=== PATIENT | female | born 1980 | race Caucasian/White ===

== ENCOUNTER → 2020-01-27 13:37 | Outpatient (BNVA) | payer OTHER, SELFPAY | PROVIDERS: Family Provider Family Medicine; PCP Family Medicine; Visit Provider Otolaryngology | DX: R13.10 Dysphagia, unspecified (principal); J30.89 Other allergic rhinitis; J34.2 Deviated nasal septum | CPT/HCPCS: 96372; 99204; 99214; J3301 ==

== ENCOUNTER 2020-02-09 04:26 | Emergency (ER) | payer OTHER, SELFPAY ==
[2020-02-09 04:27] VITALS: BP 133/88; PULSE 70; RESP 16; TEMP 36.9; O2SAT 99; BMI 40.9
--- NOTE | 2020-02-09 04:29 | PC.NURSE ---
patient started vomiting blood today. patient states she started having abdominal pain monday. patient states she was seen at another facility but was not satisfied with her care there. patient states she is having pain on the lower right side of her abdomen
--- NOTE | 2020-02-09 04:48 | CTR_ITS ---
PROCEDURE INFORMATION: Exam: CT Abdomen And Pelvis With Contrast Exam date and time: 02/09/2020 4:49 AM Age: 39 years old Clinical indication: Abdominal pain; Localized; Right; Prior surgery; Surgery date: 6+ months; Surgery type: Gb; Additional info: R belly pain TECHNIQUE: Imaging protocol: Computed tomography of the abdomen and pelvis with intravenous contrast. Total DLP: 1872.44 mGy-cm Radiation optimization: All CT scans at this facility use at least one of these dose optimization techniques: automated exposure control; mA and/or kV adjustment per patient size (includes targeted exams where dose is matched to clinical indication); or iterative reconstruction. Contrast material: OMNI 300; Contrast volume: 95 ml; Contrast route: IV; COMPARISON: CT Abdomen/Pelvis Renal [id number] 06/17/2019 10:05 AM FINDINGS: Lungs: Calcified pulmonary granulomatous change noted. Liver: Fatty liver. Gallbladder and bile ducts: Cholecystectomy. Pancreas: Normal. No ductal dilation. Spleen: Normal. No splenomegaly. Adrenals: Normal. No mass. Kidneys and ureters: Normal. No hydronephrosis. Stomach and bowel: Unremarkable. No obstruction. No mucosal thickening. Appendix: No evidence of appendicitis. Intraperitoneal space: Unremarkable. No free air. No significant fluid collection. Vasculature: Unremarkable. No abdominal aortic aneurysm. Lymph nodes: Unremarkable. No enlarged lymph nodes. Bladder: Unremarkable as visualized. Reproductive: Unremarkable as visualized. Bones/joints: No acute fracture. Soft tissues: Calcifications are seen in subcutaneous fat that can relate to injection sites. CT/CT abdomen pelvis w con* [id number] IMPRESSION: No acute findings. Radiation Dose CTDIVOL = (mGy): DLP = 1872.44 (mGy-cm)
--- NOTE | 2020-02-09 04:52 | PC.NURSE ---
PATIENT STATES SHE STARTED HAVING ABDOMINAL PAIN ON MONDAY AND LAST NIGHT STARTED VOMITING BLOOD. PATIENT STATES SHE HAS VOMITED BLOOD TWICE. PATIENT STATES THE PAIN IS LOCATED ON THE RIGHT SIDE OF HER ABDOMEN AND INTO THE RIGHT FLANK.
[2020-02-09 04:54] VITALS: BP 113/78; PULSE 67; RESP 16; O2SAT 98
--- NOTE | 2020-02-09 05:01 | W.ED.ABDPA2 ---
Documented by User: Compa Lr DO 02/09/20 05:53 HPI - Abdominal Pain General: Chief Complaint: Abdominal Pain Stated Complaint: ABD PAIN Time Seen by Provider: 02/09/20 04:28 History of Present Illness: HPI narrative: 39-year-old female presenting with epigastric and right lower quadrant belly pain that started Monday morning. She states the pain worsened this morning, and was followed by vomiting. She is vomited twice, the first time a small clot was in her emesis, the second time she says the liquid was bloody. There were no clots. No further vomiting. No fever. MD elicited complaint: abdominal pain Pertinent past history: gastrointestinal bleeding Onset (ago): day(s) (2) Pain Consistency: constant Location: Epigastric and RLQ Severity: moderate Quality: sharp Migration to: no migration Exacerbating factors: movement Relieving factors: nothing Associated Symptoms: Denies change in bowel habits, chills, coffee ground emesis, diarrhea, dysuria, fever(s) and hematuria Related Data: Date of Last Menstrual Period: 01/21/20 Review of Systems Const: Denies: fever or chills Eyes: Denies: change in vision or blurry vision ENMT: Reports: painful swallowing and other (Difficulty swallowing, such that she has been on a soft diet.); Denies: swelling of lips/tongue, bleeding gums, dental pain, Change in hearing, nose bleeds, post nasal drip or facial/sinus pain Card: Denies: chest pain, palpitations, irregular heart rhythm or edema Resp: Denies: shortness of breath, productive cough, non-productive cough or wheezing GI: Denies: coffee grounds in vomit, diarrhea or change in bowel habits : Denies: painful urination or blood in urine Musc: Denies: neck pain, back pain, redness or joint warmth Skin/Breast: Denies: rash, itching or redness Neuro: Denies: headache, dizziness, vertigo or confusion Psych: Denies: anxiety, visual hallucinations or auditory hallucinations PFSH ED PFSH: Medical History (Updated 02/09/20 @ 07:07 by Carlos Christy DO) Allergic rhinitis Deviated septum Social History Smoking and tobacco status: former smoker Quit status (tobacco): has quit using tobacco Year quit tobacco: 2017 Female Reproductive History: Date of last menstrual period: 01/21/20 : 5 Physical Exam Const: GENERAL APPEARANCE: well developed ORIENTATION/CONSCIOUSNESS: Yes oriented to person, Yes oriented to place and Yes oriented to time HENMT: COMMON NORMALS: normocephalic, external ears normal and external nose normal HEAD & SCALP: normocephalic FACE & SINUS: normal facial exam NOSE: external nose normal and no nasal discharge EXTERNAL EAR: Yes external ears normal MOUTH: tongue normal Eye: COMMON NORMALS: PERRL, EOMs intact bilaterally and conjunctivae normal EYELID: eyelids normal CONJUNCTIVA: Yes conjunctivae normal PUPIL: Yes PERRL Neck/C-Spine: COMMON NORMALS: full ROM GENERAL: No tracheal deviation Chest: COMMONS NORMALS: inspection of chest normal CHEST: No tenderness Resp: COMMON NORMALS: clear to auscultation bilaterally EFFORT & INSPECTION: No tachypneic, No respiratory distress, No retractions, No uses accessory muscles and No tracheal deviation AUSCULTATION: clear to auscultation bilaterally, no rhonchi, no wheezes and lung sounds not diminished Cardio: COMMON NORMALS: regular rate and regular rhythm RATE: regular rate RHYTHM: regular rhythm HEART SOUNDS: no murmurs PERIPHERAL PULSES: radial pulses present GI: COMMON NORMALS: soft to palpation INSPECTION: No abdominal distension AUSCULTATION: No hyperactive bowel sounds and No hypoactive bowel sounds PALPATION: Yes soft, Yes tender Details: RLQ, No guarding, No rigid and Yes rebound tenderness present PERCUSSION: no dullness to percussion and no tympanic to percussion : COMMON NORMALS: Yes no CVA tenderness BLADDER/KIDNEY EXAM: Yes no CVA tenderness Back/Pelvis: COMMON NORMALS: no CVA tenderness Neuro: SENSORIUM/ORIENTATION: Yes oriented to person, Yes oriented to place and Yes oriented to time Psych: COMMON NORMALS: mental status grossly normal Skin: COMMON NORMALS: no rashes or lesions noted GENERAL SKIN EXAM: no rashes or lesions noted Course Vital Signs: Vital signs: Vital Signs Temperature 98.5 F 02/09/20 04:27 Pulse Rate 68 02/09/20 07:19 Respiratory Rate 17 02/09/20 07:19 Blood Pressure 114/83 02/09/20 07:19 Pulse Oximetry 98 02/09/20 07:19 MDM - Abdominal Pain MDM Narrative: Medical decision making narrative: No further vomiting here. Hemoglobin is 11.4. White blood cell count 7.7. Other labs and CT are pending. She will be checked out to Dr. Christy at shift change. Lab Data: Labs: Lab Results 02/09/20 02/09/20 02/09/20 Range/Units 05:13 05:13 05:13 WBC 7.7 (4.0-10.0) 10^3/ uL RBC 4.11 (4.1-5.3) 10^6/u L Hgb 11.4 L (11.5-15.3) g/dL Hct 37.2 (37.0-47.0) % MCV 90.5 (81-99) fL MCH 27.7 L (28.0-34.0) pg MCHC 30.6 (30.0-36.0) g/dL RDW 13.2 (12.1-15.1) % Plt Count 223 (130-400) 10^3/c mm MPV 11.6 H (7.4-10.4) fL Neut % (Auto) 57.7 % Lymph % (Auto) 30.1 % [place] % (Auto) 9.9 % Eos % (Auto) 1.4 % Baso % (Auto) 0.6 % Neut # (Auto) 4.4 (1.8-7.7) 10^3/u L Lymph # (Auto) 2.3 (0.8-4.8) 10^3/u L [place] # (Auto) 0.8 (0.2-0.9) 10^3/u L Eos # (Auto) 0.1 (0.0-0.8) 10^3/u L Baso # (Auto) 0.1 (0.0-0.1) 10^3/u L Nucleated RBC % (a uto) 0 % Nucleated RBCs # 0.0 /100WBC Sodium 139 (136-145) mmol/L Potassium 3.8 (3.5-5.1) mmol/L Chloride 102 (98-107) mmol/L Carbon Dioxide 25 (22-29) mmol/L Anion Gap 15.8 (5-19) BUN 13 (6-20) mg/dL Creatinine 1.0 H (0.5-0.9) mg/dL GFR Calculation 61.4 L (90-130) mL/min Glucose 102 (65-115) mg/dL Calculated Osmolal ity 284 L (285-295) mOsm/k g Calcium 9.4 (8.5-10.5) mg/dL Total Bilirubin 0.2 (0.15-1.2) mg/dL AST 17 (0-32) U/L ALT 12 (0-33) U/L Alkaline Phosphata se 81 (35-105) IU/L C-Reactive Protein 0.3 (0.0-4.9) mg/L Total Protein 8.2 (6.6-8.7) g/dL Albumin 4.5 (3.5-5.2) g/dL Globulin 3.7 (1.3-4.6) g/dL Lipase 26 (13-60) U/L HCG, Qual Negative (Negative) Urine Color (Yellow) Urine Appearance (CLEAR) Urine pH (5-7) Ur Specific Gravit y (1.005-1.030) Urine Protein (Negative) Urine Glucose (UA) (Normal) Urine Ketones (Negative) Urine Blood (Negative) Urine Nitrate (Negative) Urine Bilirubin (NEGATIVE) Urine Urobilinogen (Negative) mg/dL Ur Leukocyte Cynthia ase (Negative) Urine RBC (0-2) /hpf Urine WBC (0-5) /hpf Ur Squamous Epith Cells (0-5) Urine Bacteria (NONE) Urine Mucus 02/09/20 Range/Units 05:13 WBC (4.0-10.0) 10^3/ uL RBC (4.1-5.3) 10^6/u L Hgb (11.5-15.3) g/dL Hct (37.0-47.0) % MCV (81-99) fL MCH (28.0-34.0) pg MCHC (30.0-36.0) g/dL RDW (12.1-15.1) % Plt Count (130-400) 10^3/c mm MPV (7.4-10.4) fL Neut % (Auto) % Lymph % (Auto) % [place] % (Auto) % Eos % (Auto) % Baso % (Auto) % Neut # (Auto) (1.8-7.7) 10^3/u L Lymph # (Auto) (0.8-4.8) 10^3/u L [place] # (Auto) (0.2-0.9) 10^3/u L Eos # (Auto) (0.0-0.8) 10^3/u L Baso # (Auto) (0.0-0.1) 10^3/u L Nucleated RBC % (a uto) % Nucleated RBCs # /100WBC Sodium (136-145) mmol/L Potassium (3.5-5.1) mmol/L Chloride (98-107) mmol/L Carbon Dioxide (22-29) mmol/L Anion Gap (5-19) BUN (6-20) mg/dL Creatinine (0.5-0.9) mg/dL GFR Calculation (90-130) mL/min Glucose (65-115) mg/dL Calculated Osmolal ity (285-295) mOsm/k g Calcium (8.5-10.5) mg/dL Total Bilirubin (0.15-1.2) mg/dL AST (0-32) U/L ALT (0-33) U/L Alkaline Phosphata se (35-105) IU/L C-Reactive Protein (0.0-4.9) mg/L Total Protein (6.6-8.7) g/dL Albumin (3.5-5.2) g/dL Globulin (1.3-4.6) g/dL Lipase (13-60) U/L HCG, Qual (Negative) Urine Color Yellow (Yellow) Urine Appearance Clear (CLEAR) Urine pH 5 (5-7) Ur Specific Gravit y 1.025 (1.005-1.030) Urine Protein Neg (Negative) Urine Glucose (UA) Norm (Normal) Urine Ketones Negative (Negative) Urine Blood Neg (Negative) Urine Nitrate Negative (Negative) Urine Bilirubin Neg (NEGATIVE) Urine Urobilinogen Norm (Negative) mg/dL Ur Leukocyte Cynthia ase Trace H (Negative) Urine RBC 0-4 H (0-2) /hpf Urine WBC 5-10 H (0-5) /hpf Ur Squamous Epith Cells 0-4 H (0-5) Urine Bacteria 1+ H (NONE) Urine Mucus 1+ Discharge Plan Discharge Patient Disposition: Home, Self-Care Clinical Impression: GERD with esophagitis, Marissa-Ventura tear Condition: Stable Prescriptions: New pantoprazole 40 mg tablet,delayed release (DR/EC) 40 mg PO Q12H 10 Days Qty: 20 RF: 0 Zofran 4 mg tablet 4 mg PO Q6H PRN (Reason: nausea and vomiting) Qty: 20 RF: 0 No Action levothyroxine [Synthroid] 25 mcg tablet 25 mcg PO DAILY RF: 0 levothyroxine [Synthroid] 200 mcg tablet 200 mcg PO DAILY RF: 0 cholecalciferol (vitamin D3) 10,000 unit capsule 10,000 unit PO DAILY RF: 0 Discharge Orders: Discharge Order (Routine); Ordered 02/09/20 Ordered By: Carlos Christy Referrals: Balnco Briscoe MD [Physician] - (possible EGD) Discharge Diet: Full LIquid Discharge Activity: Increase activity as tolerated Patient Instructions: Full Liquid Diet Activity Restrictions/Additional Instructions: Turn if it worsening problems. Case management will call you to get set up with Dr. Briscoe for possible EGD. Discharge Date/Time: 02/09/20 07:19 Sign Out Sign Out Data: Patient Sign Out occurred on 02/09/20 at 06:36. Patient's care was discussed, and care was transferred from to Carlos Christy DO. Coding Level of Care Code ED Flower Grower for Chg Fwd Exam Comprehensive Documented by User: Carlos Christy DO 02/09/20 08:24 HPI - Abdominal Pain General: Chief Complaint: Abdominal Pain Stated Complaint: ABD PAIN Time Seen by Provider: 02/09/20 04:28 PFSH ED PFSH: Medical History (Updated 02/09/20 @ 07:07 by Carlos Christy DO) Allergic rhinitis Deviated septum Social History Smoking and tobacco status: former smoker Quit status (tobacco): has quit using tobacco Year quit tobacco: 2017 Course Vital Signs: Vital signs: Vital Signs Temperature 98.5 F 02/09/20 04:27 Pulse Rate 68 02/09/20 07:19 Respiratory Rate 17 02/09/20 07:19 Blood Pressure 114/83 02/09/20 07:19 Pulse Oximetry 98 02/09/20 07:19 MDM - Abdominal Pain MDM Narrative: Medical decision making narrative: Care assumed a change of shift from Dr. Lr. Hemoglobin is adequate BUN is not elevated she is been having this for some time she had seen Dr. Edwards previously she was supposed to get a EGD but because the pandemic is been delayed. Were going to go ahead and start her on a PPI. We will get her set up to see Dr. Briscoe as an outpatient to see if we can get this EGD done for her if she has worsening or increasing problems she should return. Lab Data: Labs: Lab Results 02/09/20 02/09/20 02/09/20 Range/Units 05:13 05:13 05:13 WBC 7.7 (4.0-10.0) 10^3/ uL RBC 4.11 (4.1-5.3) 10^6/u L Hgb 11.4 L (11.5-15.3) g/dL Hct 37.2 (37.0-47.0) % MCV 90.5 (81-99) fL MCH 27.7 L (28.0-34.0) pg MCHC 30.6 (30.0-36.0) g/dL RDW 13.2 (12.1-15.1) % Plt Count 223 (130-400) 10^3/c mm MPV 11.6 H (7.4-10.4) fL Neut % (Auto) 57.7 % Lymph % (Auto) 30.1 % [place] % (Auto) 9.9 % Eos % (Auto) 1.4 % Baso % (Auto) 0.6 % Neut # (Auto) 4.4 (1.8-7.7) 10^3/u L Lymph # (Auto) 2.3 (0.8-4.8) 10^3/u L [place] # (Auto) 0.8 (0.2-0.9) 10^3/u L Eos # (Auto) 0.1 (0.0-0.8) 10^3/u L Baso # (Auto) 0.1 (0.0-0.1) 10^3/u L Nucleated RBC % (a uto) 0 % Nucleated RBCs # 0.0 /100WBC Sodium 139 (136-145) mmol/L Potassium 3.8 (3.5-5.1) mmol/L Chloride 102 (98-107) mmol/L Carbon Dioxide 25 (22-29) mmol/L Anion Gap 15.8 (5-19) BUN 13 (6-20) mg/dL Creatinine 1.0 H (0.5-0.9) mg/dL GFR Calculation 61.4 L (90-130) mL/min Glucose 102 (65-115) mg/dL Calculated Osmolal ity 284 L (285-295) mOsm/k g Calcium 9.4 (8.5-10.5) mg/dL Total Bilirubin 0.2 (0.15-1.2) mg/dL AST 17 (0-32) U/L ALT 12 (0-33) U/L Alkaline Phosphata se 81 (35-105) IU/L C-Reactive Protein 0.3 (0.0-4.9) mg/L Total Protein 8.2 (6.6-8.7) g/dL Albumin 4.5 (3.5-5.2) g/dL Globulin 3.7 (1.3-4.6) g/dL Lipase 26 (13-60) U/L HCG, Qual Negative (Negative) Urine Color (Yellow) Urine Appearance (CLEAR) Urine pH (5-7) Ur Specific Gravit y (1.005-1.030) Urine Protein (Negative) Urine Glucose (UA) (Normal) Urine Ketones (Negative) Urine Blood (Negative) Urine Nitrate (Negative) Urine Bilirubin (NEGATIVE) Urine Urobilinogen (Negative) mg/dL Ur Leukocyte Cynthia ase (Negative) Urine RBC (0-2) /hpf Urine WBC (0-5) /hpf Ur Squamous Epith Cells (0-5) Urine Bacteria (NONE) Urine Mucus 02/09/20 Range/Units 05:13 WBC (4.0-10.0) 10^3/ uL RBC (4.1-5.3) 10^6/u L Hgb (11.5-15.3) g/dL Hct (37.0-47.0) % MCV (81-99) fL MCH (28.0-34.0) pg MCHC (30.0-36.0) g/dL RDW (12.1-15.1) % Plt Count (130-400) 10^3/c mm MPV (7.4-10.4) fL Neut % (Auto) % Lymph % (Auto) % [place] % (Auto) % Eos % (Auto) % Baso % (Auto) % Neut # (Auto) (1.8-7.7) 10^3/u L Lymph # (Auto) (0.8-4.8) 10^3/u L [place] # (Auto) (0.2-0.9) 10^3/u L Eos # (Auto) (0.0-0.8) 10^3/u L Baso # (Auto) (0.0-0.1) 10^3/u L Nucleated RBC % (a uto) % Nucleated RBCs # /100WBC Sodium (136-145) mmol/L Potassium (3.5-5.1) mmol/L Chloride (98-107) mmol/L Carbon Dioxide (22-29) mmol/L Anion Gap (5-19) BUN (6-20) mg/dL Creatinine (0.5-0.9) mg/dL GFR Calculation (90-130) mL/min Glucose (65-115) mg/dL Calculated Osmolal ity (285-295) mOsm/k g Calcium (8.5-10.5) mg/dL Total Bilirubin (0.15-1.2) mg/dL AST (0-32) U/L ALT (0-33) U/L Alkaline Phosphata se (35-105) IU/L C-Reactive Protein (0.0-4.9) mg/L Total Protein (6.6-8.7) g/dL Albumin (3.5-5.2) g/dL Globulin (1.3-4.6) g/dL Lipase (13-60) U/L HCG, Qual (Negative) Urine Color Yellow (Yellow) Urine Appearance Clear (CLEAR) Urine pH 5 (5-7) Ur Specific Gravit y 1.025 (1.005-1.030) Urine Protein Neg (Negative) Urine Glucose (UA) Norm (Normal) Urine Ketones Negative (Negative) Urine Blood Neg (Negative) Urine Nitrate Negative (Negative) Urine Bilirubin Neg (NEGATIVE) Urine Urobilinogen Norm (Negative) mg/dL Ur Leukocyte Cynthia ase Trace H (Negative) Urine RBC 0-4 H (0-2) /hpf Urine WBC 5-10 H (0-5) /hpf Ur Squamous Epith Cells 0-4 H (0-5) Urine Bacteria 1+ H (NONE) Urine Mucus 1+ Discharge Plan Discharge Patient Disposition: Home, Self-Care Clinical Impression: GERD with esophagitis, Marissa-Ventura tear Condition: Stable Prescriptions: New pantoprazole 40 mg tablet,delayed release (DR/EC) 40 mg PO Q12H 10 Days Qty: 20 RF: 0 Zofran 4 mg tablet 4 mg PO Q6H PRN (Reason: nausea and vomiting) Qty: 20 RF: 0 No Action levothyroxine [Synthroid] 25 mcg tablet 25 mcg PO DAILY RF: 0 levothyroxine [Synthroid] 200 mcg tablet 200 mcg PO DAILY RF: 0 cholecalciferol (vitamin D3) 10,000 unit capsule 10,000 unit PO DAILY RF: 0 Discharge Orders: Discharge Order (Routine); Ordered 02/09/20 Ordered By: Carlos Christy Referrals: Blanco Briscoe MD [Physician] - (possible EGD) Discharge Diet: Full LIquid Discharge Activity: Increase activity as tolerated Patient Instructions: Full Liquid Diet Activity Restrictions/Additional Instructions: Turn if it worsening problems. Case management will call you to get set up with Dr. Briscoe for possible EGD. Discharge Date/Time: 02/09/20 07:19 Sign Out Sign Out Data: Patient Sign Out occurred on 02/09/20 at 06:36. Patient's care was discussed, and care was transferred from to Carlos Christy DO. Coding Level of Care Code ED Flower Grower for Chg Fwd Exam Comprehensive
[2020-02-09] MEDS: ondansetron 2 mg/ML SDV 2 mL 4 MG IVP (05:12)
[2020-02-09 05:30] VITALS: BP 102/65; PULSE 69; RESP 16; O2SAT 97
[2020-02-09 05:35] LABS: Basophils # 0.1 10^3/uL (0.0-0.1); Basophils % 0.6 %; Eosinophils # 0.1 10^3/uL (0.0-0.8); Eosinophils % 1.4 %; Hematocrit 37.2 % (37.0-47.0); Hemoglobin 11.4 g/dL (11.5-15.3); Lymphocytes # 2.3 10^3/uL (0.8-4.8); Lymphocytes % 30.1 %; Mean Corpuscular HGB Conc 30.6 g/dL (30.0-36.0); Mean Corpuscular Hemoglobin 27.7 pg (28.0-34.0); Mean Corpuscular Volume 90.5 fL (81-99); Mean Platelet Volume 11.6 fL (7.4-10.4); Monocytes # 0.8 10^3/uL (0.2-0.9); Monocytes % 9.9 %; Neutrophils # 4.4 10^3/uL (1.8-7.7); Neutrophils % 57.7 %; Nucleated Red Blood Cells % 0 %; Platelet Count 223 10^3/cmm (130-400); Red Blood Count 4.11 10^6/uL (4.1-5.3); Red Cell Distribution Width 13.2 % (12.1-15.1); White Blood Count 7.7 10^3/uL (4.0-10.0)
[2020-02-09 05:37] LABS: Blood Urine Neg (Negative); Glucose Urine UA Norm (Normal); Ketones Urine Negative (Negative); Nitrate Urine Negative (Negative); Protein Urine Neg (Negative); Specific Gravity, Urine 1.025 (1.005-1.030); Urine Appearance Clear (CLEAR); Urine Color Yellow (Yellow); pH Urine 5 (5-7)
[2020-02-09 05:38] LABS: Add Urine Microscopic? YES; Bilirubin Urine Neg (NEGATIVE); Leukocyte Esterase Urine Trace (Negative); Urobilinogen Urine Norm (Negative)
[2020-02-09 05:43] LABS: HCG, Serum Qual Negative (Negative)
[2020-02-09 05:55] LABS: Bacteria Urine 1+; Mucus Urine 1+; RBC Urine 0-4 /hpf (0-2); Squamous Epithelial Cell Urine 0-4 (0-5)
[2020-02-09 05:57] LABS: Alanine Aminotransferase 12 U/L (0-33); Albumin Level 4.5 g/dL (3.5-5.2); Alkaline Phosphatase 81 IU/L (35-105); Anion Gap 15.8 (5-19); Aspartate Amino Transferase 17 U/L (0-32); Blood Urea Nitrogen 13 mg/dL (6-20); C Reactive Protein 0.3 mg/L (0.0-4.9); Calcium 9.4 mg/dL (8.5-10.5); Carbon Dioxide 25 mmol/L (22-29); Chloride 102 mmol/L (98-107); Globulin 3.7 g/dL (1.3-4.6); Glomerular Filtration Rate 61.4 mL/min (90-130); Glucose 102 mg/dL (65-115); Lipase 26 U/L (13-60); Osmolality Calculated 284 mOsm/kg (285-295); Potassium 3.8 mmol/L (3.5-5.1); Sodium 139 mmol/L (136-145); Total Bilirubin 0.2 mg/dL (0.15-1.2); Total Protein 8.2 g/dL (6.6-8.7)
[2020-02-09] MEDS: iohexol 300 mg/mL 100 mL Btl IV (06:03)
--- NOTE | 2020-02-09 06:09 | PC.NURSE ---
PATIENT BACK FROM CT
[2020-02-09 06:13] VITALS: BP 106/63; PULSE 64; RESP 14; O2SAT 99
[2020-02-09 06:34] VITALS: BP 118/75; PULSE 61; RESP 14; O2SAT 99
[2020-02-09 07:19] VITALS: BP 114/83; PULSE 68; RESP 17; O2SAT 98
--- NOTE | 2020-02-11 10:32 | DCPLANNER ---
commercial sales manager had message to schedule a follow up appointment for patient with general surgery. commercial sales manager called [facility], spoke with Flora, a follow up appointment is scheduled for Wednesday, February 12, 2020 at 12:[address] Naylor. Clinic will speak with patient.
--- NOTE | 2020-03-31 07:31 | DCPLANNER ---
Patient attended appointment scheduled for 02.12.20 with [facility].
== END 2020-02-09 07:19 | disposition home or self-care (01) ==
PROVIDERS: Emergency Medicine; Emergency Provider Family Medicine; Family Provider Family Medicine; PCP Family Medicine
DX: K21.0 Gastro-esophageal reflux disease with esophagitis (principal); K22.6 Gastro-esophageal laceration-hemorrhage syndrome; R10.31 Right lower quadrant pain; Z87.891 Personal history of nicotine dependence
CPT/HCPCS: 12345; 74177; 80053; 81001; 83690; 84703; 85025; 86140; 96365; 96374; 96375; 99283; 99284; A9270; J0131; J2405; Q9967

== ENCOUNTER 2020-02-13 08:34 | Outpatient (CLI) | payer OTHER, SELFPAY ==
--- NOTE | 2020-02-13 08:42 | FL_ITS ---
WS: [id number] UPPER GI EXAMINATION HISTORY: GASTROESOPHAGEAL REFLUX DISEASE WITH ESOPHAGITIS COMPARISON: None available. FLUOROSCOPY TIME: 1.9 minutes. Normal gas pattern. Prior cholecystectomy. Patient was unable to drink a significant amount of the barium mixture in order to distend the esopha pepe. Patient was only able to take small sips of the barium and then began vomiting. This study is li mited. There is a slight stricture in the mid cervical esophagus with an anterior web. The lumen is only sli ghtly narrowed. No filling defect. No hernia or reflux was demonstrated. Normal stomach. No gastroesophageal reflux No hiatal hernia was demonstrated on this exam. FL/FL upper GI w air [id number] IMPRESSION: 1. Limited evaluation of the esophagus due to patient's inability to drink the barium mixture and vomiting. 2. 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 Very minimal narrowing of the lumen. 3. Negative upper GI examination with no hernia or reflux.
== END 2020-02-13 08:35 | disposition home or self-care (01) ==
LOC: RADWPI 08:37
PROVIDERS: Family Provider Family Medicine; PCP Family Medicine; Visit Provider Surgery
DX: K21.0 Gastro-esophageal reflux disease with esophagitis (principal)
CPT/HCPCS: 74246

== ENCOUNTER 2020-02-17 07:18 | Day surgery (SDC) | payer OTHER, SELFPAY ==
[2020-02-14 12:02] VITALS: BMI 39.6
[2020-02-17 07:41] VITALS: BP 128/91; PULSE 75; RESP 18; TEMP 36.2; O2SAT 99
[2020-02-17] MEDS: sodium chloride 0.9% 1,000 ML 30 ML IV (07:51)
--- NOTE | 2020-02-17 07:56 | ANES.PREANE2 ---
Pre-Anesthetic Assessment Pre-Anesthetic Assessment: Height/Weight: Height 1.6 m Weight 101.605 kg Temp Pulse Resp BP Pulse Ox 97.2 F L 75 18 128/91 99 02/17/20 07:41 02/17/20 07:41 02/17/20 07:41 02/17/20 07:41 02/17/20 07:41 Preop Diagnosis: Difficulty in swallowing and hematemesis Proposed Procedure: Operation Date: 02/17/20 08:40 Proposed Procedures p EGD Dilation W/ Balloon 81895 K21.0(Not Applicable) - Alec Naylor MD Familial anesthetic complications: None Was Beta Jose Cruz taken within 24 hours: N/A Last intake: Intake Last Liquid Date 02/16/20 Last Liquid Time 21:30 Last Solid Date 02/16/20 Last Solid Time 12:00 Social: Comment: former smoker Exam: Pre-Anes Outpt Exam: alert, oriented x 3, clear to auscultation bilaterally and regular rate & rhythm Airway: Cervical ROM: WNL MP: 1 Dentition: Full Pulmonary: Pulmonary: None reported CV/HEM: CV/HEM: Palp and None reported Comments: abnormal stress and ekg 5 weeks ago, but apparenlty had normal cath Having palpitations (just pressure) and is gonna get a 2 week holter monitor : : None reported Hepatic: Hepatic: None reported GI: Comments: esophageal strictures Metabolic: Metabolic: Morbid obesity and Thyroid Comments: on thyroid replacement - but hasn't been able to swallow them properly in a week, last one was taken yesterday Musc/skel: Musc/skel: None reported Neuropsych: Neuropsych: None reported Anesthetic Plan: ASA status: 2 Anesthesia: General Risk of > 500 ml blood loss (7ml/kg in children): No Meds/Allergies Current Medications: Current Medications Generic Name Dose Route Start Last Admin Trade Name Freq PRN Reason Stop Dose Admin Sodium Chloride 1,000 mls @ 30 ml s/hr 02/17/20 07:30 02/17/20 07:51 Sodium Chloride 0.9% IV 02/18/20 07:29 30 mls/hr .Q24H ZULMA Administration PFSH Anesthesia PFSH: Medical History (Updated 02/17/20 @ 00:00 by ) Allergic rhinitis Deviated septum FH: cholecystectomy Hypothyroid Palpitations Vomiting blood Surgical History (Updated 02/13/20 @ 16:58 by Alec Naylor MD) History of thyroid surgery S/P ACL repair Family History (Updated 02/12/20 @ 12:01 by Traci Goodman RN) Other CAD (coronary artery disease) Diabetes Denies family history of Anesthesia complication Bleeding disorder Social History Smoking and tobacco status: former smoker Quit status (tobacco): has quit using tobacco Year quit tobacco: 2017 Female Reproductive History: Date of last menstrual period: 01/21/20 Data Anesthesia Cardiac Studies: No Data to Display
[2020-02-17 07:57] LABS: OR HCG Qualitative Urine Negative (Negative)
[2020-02-17 08:35] VITALS: BP 103/63; PULSE 85; RESP 20; TEMP 36.2; O2SAT 97
--- NOTE | 2020-02-17 08:36 | SUR.PHASEI ---
0835 PATIENT TO PACU AT THIS TIME FROM OR. RR EVEN AND UNLABORED. TALKATIVE. PATIENT DENIES PAIN.
[2020-02-17 08:40] VITALS: BP 111/59; PULSE 76; RESP 13; O2SAT 96
[2020-02-17 08:45] VITALS: BP 106/68; PULSE 74; RESP 14; O2SAT 94
--- NOTE | 2020-02-17 08:48 | SUR.PHASEI ---
2104 PATIENT OPS AT THIS TIME. DENIES PAIN. TOLERATING ICE CHIPS. TALKATIVE.
[2020-02-17 08:50] VITALS: BP 104/64; PULSE 69; RESP 16; TEMP 36.4; O2SAT 96
[2020-02-17 09:10] VITALS: BP 102/69; PULSE 64; RESP 18; O2SAT 96
[2020-02-17 09:52] LABS: H. Pylori / CLO Test Positive
--- NOTE | 2020-02-18 14:42 | W.PM.OPSUD ---
Surgery/Procedure H&P Update DATE OF PROCEDURE: February 17, 2020 DATE H&P PERFORMED: 02/12/20 H&P UPDATE INFORMATION: I have reviewed H&P completed within last 30 days, I have examined patient prior to procedure and No changes to prior documentation PREOP DIAGNOSIS: Difficulty in swallowing and hematemesis PRIMARY INDICATION FOR PROCEDURE: The same PLANNED PROCEDURE: Operation Date: 02/17/20 08:40 Proposed Procedures p EGD Dilation W/ Balloon 07755 K21.0(Not Applicable) - Alec Naylor MD
== END 2020-02-17 09:35 | disposition home or self-care (01) ==
PROVIDERS: Anesthesiology; Family Provider Family Medicine; PCP Family Medicine; Visit Provider Surgery
PROC: (CPT 43239; principal; 2020-02-17 08:30)
DX: R13.10 Dysphagia, unspecified (principal); E03.9 Hypothyroidism, unspecified; Z82.49 Family history of ischemic heart disease and other diseases of the circulatory system; Z83.3 Family history of diabetes mellitus; Z87.891 Personal history of nicotine dependence; K29.70 Gastritis, unspecified, without bleeding; K29.80 Duodenitis without bleeding; E66.09 Other obesity due to excess calories; Z68.39 Body mass index [BMI] 39.0-39.9, adult
CPT/HCPCS: 43239; 12345; 81025; 84703; 87077; J0330; J1100; J1815; J2001; J2405; J2704; J3010; J7030

== ENCOUNTER 2020-02-19 13:38 | Emergency (ER) | payer OTHER, SELFPAY ==
[2020-02-19 13:50] VITALS: BP 127/89; PULSE 74; RESP 17; TEMP 36.9; O2SAT 100; BMI 39.6
[2020-02-19] MEDS: ondansetron 2 mg/ML SDV 2 mL 4 MG IVP (14:21)
[2020-02-19 14:32] LABS: Basophils % 0.5 %; Eosinophils # 0.1 10^3/uL (0.0-0.8); Eosinophils % 0.7 %; Hematocrit 35.7 % (37.0-47.0); Hemoglobin 10.9 g/dL (11.5-15.3); Lymphocytes % 34.7 %; Mean Corpuscular HGB Conc 30.5 g/dL (30.0-36.0); Mean Corpuscular Hemoglobin 27.5 pg (28.0-34.0); Mean Corpuscular Volume 89.9 fL (81-99); Monocytes # 0.6 10^3/uL (0.2-0.9); Monocytes % 6.5 %; Neutrophils # 4.9 10^3/uL (1.8-7.7); Neutrophils % 57.5 %; Nucleated Red Blood Cells % 0 %; Platelet Count 232 10^3/cmm (130-400); Red Blood Count 3.97 10^6/uL (4.1-5.3); Red Cell Distribution Width 13.7 % (12.1-15.1); White Blood Count 8.5 10^3/uL (4.0-10.0)
--- NOTE | 2020-02-19 14:32 | W.ED.GENADLT ---
HPI - General Adult General: Chief complaint: Nausea/Vomiting/Diarrhea Stated complaint: post op problems/weakness/n/v Time Seen by Provider: 02/19/20 14:10 Source: patient Mode of arrival: ambulatory Limitations: no limitations History of Present Illness: HPI narrative: Patient is a 39-year-old female who presents to ED today with complaints of dysphasia that has been present for approximately 2 months now. Patient tells me she has had previous issues since 2013. She states during that year she had her esophagus stretched at [facility]. Patient tells me she recently was evaluated by Dr. Naylor who performed an EGD a few days ago. Results of that EGD show gastritis and duodenitis. She was also positive for H. pylori and placed on triple therapy however patient tells me she is unable to swallow her pills. She tells me she is only been able to consume baby food for the past 7 weeks. Patient reports a thyroidectomy in 2011. She tells me it feels like I have no muscles in my throat to swallow anything . Onset (ago): month(s) Relieving factors: none Exacerbating factors: other (swallowing) Associated symptoms: Reports no associated symptoms; Deny chest pain, dyspnea, headache(s), malaise, nausea, rash, palpitations or syncope Treatments prior to arrival: other (recent EGD) Review of Systems Const: Denies: fever, chills, body aches, fatigue or malaise Eyes: Denies: change in vision, blurry vision, photophobia, floaters or seeing flashes ENMT: Denies: throat pain, enlarged tonsils, painful swallowing, mouth pain, swelling of lips/tongue, oral sores/lesions, dental pain, ear pain, nasal discharge or nasal congestion Card: Denies: chest pain, palpitations, irregular heart rhythm, edema, lightheadedness, syncope or pre-syncope Resp: Denies: shortness of breath, productive cough, non-productive cough or chest congestion GI: Denies: abdominal pain or nausea Musc: Denies: neck pain or back pain Skin/Breast: Denies: rash Neuro: Denies: headache, numbness in extremities, weakness in extremities or changes in sensation [facility] ED PFSH: Medical History (Updated 02/19/20 @ 16:43 by JOCY Paulino) Allergic rhinitis Deviated septum FH: cholecystectomy Hypothyroid Palpitations Vomiting blood Surgical History (Updated 02/13/20 @ 16:58 by Alec Naylor MD) History of thyroid surgery S/P ACL repair Family History (Updated 02/12/20 @ 12:01 by Traci oGodman RN) Other CAD (coronary artery disease) Diabetes Denies family history of Anesthesia complication Bleeding disorder Social History Smoking and tobacco status: former smoker Quit status (tobacco): has quit using tobacco Year quit tobacco: 2016 Female Reproductive History: Date of last menstrual period: 01/21/20 Physical Exam Const: COMMON NORMALS: no apparent distress, oriented x3, no limitations and alert NUTRITIONAL APPEARANCE: obese HENMT: COMMON NORMALS: normocephalic, head/scalp atraumatic, hearing grossly normal bilaterally, external nose normal and gingiva normal HEAD & SCALP: normal to inspection, normocephalic and atraumatic FACE & SINUS: normal facial exam NOSE: external nose normal MOUTH: oral and palatal mucosa normal, lip normal and tongue normal THROAT: posterior oropharynx normal, tonsils normal and uvula midline Neck/C-Spine: COMMON NORMALS: full ROM, no lymphadenopathy and supple GENERAL: Yes normal visual inspection, Yes trachea midline, No anterior neck swelling and No submandibular swelling THYROID: other Resp: COMMON NORMALS: normal respiratory effort and clear to auscultation bilaterally AUSCULTATION: clear to auscultation bilaterally Cardio: COMMON NORMALS: regular rate and regular rhythm RATE: regular rate RHYTHM: regular rhythm Neuro: COMMON NORMALS: oriented x3 SENSORIUM/ORIENTATION: Yes alert Skin: COMMON NORMALS: no rashes or lesions noted GENERAL SKIN EXAM: no rashes or lesions noted Course Vital Signs: Vital signs: Vital Signs Temperature 98.4 F 02/19/20 13:50 Pulse Rate 58 L 02/19/20 14:39 Respiratory Rate 18 02/19/20 14:39 Blood Pressure 99/60 02/19/20 14:39 Pulse Oximetry 97 02/19/20 14:39 MDM - General Adult MDM Narrative: Medical decision making narrative: Pt had already contact Dr. Naylor' office and they later contacted me. They told me they had spoken to Dr. Naylor directly and he is changing pts medications to liquid Amoxicillin and Clarithromycin (these were called in to [facility] She will have to take the Protonix pill as there is no oral formulation of this. They are currently scheduling her for a modified barium swallow. They are also trying to get her esophageal manometry in [place] as soon as they are able to schedule her. She has follow up with Dr. Naylor on Monday. Patient's labs here look okay apart from her TSH which was 371. Her free T4 and T3 are low. She was made aware of this and needs to follow-up with her food truck caterer as soon as possible for further evaluation of these. UA showing 2+ leuks and some WBCs. She has absolutely no signs or symptoms of a UTI. We will go ahead and culture her urine but hold off on antibiotics at this time as she is already going to be taking 2 separate antibiotics for the H. pylori. Return to ED precautions given. Lab Data: Labs: Lab Results 02/19/20 02/19/20 02/19/20 Range/Units 14:20 14:20 14:20 WBC 8.5 (4.0-10.0) 10^3/ uL RBC 3.97 L (4.1-5.3) 10^6/u L Hgb 10.9 L (11.5-15.3) g/dL Hct 35.7 L (37.0-47.0) % MCV 89.9 (81-99) fL MCH 27.5 L (28.0-34.0) pg MCHC 30.5 (30.0-36.0) g/dL RDW 13.7 (12.1-15.1) % Plt Count 232 (130-400) 10^3/c mm MPV 11.0 H (7.4-10.4) fL Neut % (Auto) 57.5 % Lymph % (Auto) 34.7 % Bandera % (Auto) 6.5 % Eos % (Auto) 0.7 % Baso % (Auto) 0.5 % Neut # (Auto) 4.9 (1.8-7.7) 10^3/u L Lymph # (Auto) 3.0 (0.8-4.8) 10^3/u L Bandera # (Auto) 0.6 (0.2-0.9) 10^3/u L Eos # (Auto) 0.1 (0.0-0.8) 10^3/u L Baso # (Auto) 0.0 (0.0-0.1) 10^3/u L Nucleated RBC % (a uto) 0 % Nucleated RBCs # 0.0 /100WBC Sodium 140 (136-145) mmol/L Potassium 3.8 (3.5-5.1) mmol/L Chloride 102 (98-107) mmol/L Carbon Dioxide 25 (22-29) mmol/L Anion Gap 16.8 (5-19) BUN 14 (6-20) mg/dL Creatinine 1.1 H (0.5-0.9) mg/dL GFR Calculation 55.0 L (90-130) mL/min Glucose 98 (65-115) mg/dL Calculated Osmolal ity 286 (285-295) mOsm/k g Calcium 9.1 (8.5-10.5) mg/dL Total Bilirubin 0.3 (0.15-1.2) mg/dL AST 18 (0-32) U/L ALT < 5 (0-33) U/L Alkaline Phosphata se 63 (35-105) IU/L Total Protein 7.2 (6.6-8.7) g/dL Albumin 4.3 (3.5-5.2) g/dL Globulin 2.9 (1.3-4.6) g/dL Lipase 24 (13-60) U/L TSH (0.27-4.20) uIU/ mL Free T4 (0.82-1.77) ng/d L Free T3 (2.0-4.4) PG/ML HCG, Qual Negative (Negative) Urine Color (Yellow) Urine Appearance (CLEAR) Urine pH (5-7) Ur Specific Gravit y (1.005-1.030) Urine Protein (Negative) Urine Glucose (UA) (Normal) Urine Ketones (Negative) Urine Blood (Negative) Urine Nitrate (Negative) Urine Bilirubin (NEGATIVE) Urine Urobilinogen (Negative) mg/dL Ur Leukocyte Cynthia ase (Negative) Urine RBC (0-2) /hpf Urine WBC (0-5) /hpf Ur Squamous Epith Cells (0-5) Urine Bacteria (NONE) 02/19/20 02/19/20 02/19/20 Range/Units 14:20 14:20 15:22 WBC (4.0-10.0) 10^3/ uL RBC (4.1-5.3) 10^6/u L Hgb (11.5-15.3) g/dL Hct (37.0-47.0) % MCV (81-99) fL MCH (28.0-34.0) pg MCHC (30.0-36.0) g/dL RDW (12.1-15.1) % Plt Count (130-400) 10^3/c mm MPV (7.4-10.4) fL Neut % (Auto) % Lymph % (Auto) % Bandera % (Auto) % Eos % (Auto) % Baso % (Auto) % Neut # (Auto) (1.8-7.7) 10^3/u L Lymph # (Auto) (0.8-4.8) 10^3/u L Bandera # (Auto) (0.2-0.9) 10^3/u L Eos # (Auto) (0.0-0.8) 10^3/u L Baso # (Auto) (0.0-0.1) 10^3/u L Nucleated RBC % (a uto) % Nucleated RBCs # /100WBC Sodium (136-145) mmol/L Potassium (3.5-5.1) mmol/L Chloride (98-107) mmol/L Carbon Dioxide (22-29) mmol/L Anion Gap (5-19) BUN (6-20) mg/dL Creatinine (0.5-0.9) mg/dL GFR Calculation (90-130) mL/min Glucose (65-115) mg/dL Calculated Osmolal ity (285-295) mOsm/k g Calcium (8.5-10.5) mg/dL Total Bilirubin (0.15-1.2) mg/dL AST (0-32) U/L ALT (0-33) U/L Alkaline Phosphata se (35-105) IU/L Total Protein (6.6-8.7) g/dL Albumin (3.5-5.2) g/dL Globulin (1.3-4.6) g/dL Lipase (13-60) U/L TSH 371.00 H (0.27-4.20) uIU/ mL Free T4 0.20 L (0.82-1.77) ng/d L Free T3 0.9 L (2.0-4.4) PG/ML HCG, Qual (Negative) Urine Color Yellow (Yellow) Urine Appearance Clear (CLEAR) Urine pH 5 (5-7) Ur Specific Gravit y 1.010 (1.005-1.030) Urine Protein Neg (Negative) Urine Glucose (UA) Norm (Normal) Urine Ketones Negative (Negative) Urine Blood Neg (Negative) Urine Nitrate Negative (Negative) Urine Bilirubin Neg (NEGATIVE) Urine Urobilinogen Norm (Negative) mg/dL Ur Leukocyte Cynthia ase 2+ H (Negative) Urine RBC None (0-2) /hpf Urine WBC 25-40 H (0-5) /hpf Ur Squamous Epith Cells 0-4 H (0-5) Urine Bacteria 1+ H (NONE) Discharge Plan Discharge Patient Disposition: Home, Self-Care Clinical Impression: Dysphagia Qualifiers: Dysphagia type: oropharyngeal phase Qualified Code(s): R13.12 - Dysphagia, oropharyngeal phase Condition: Stable Prescriptions: No Action levothyroxine [Synthroid] 25 mcg tablet 25 mcg PO DAILY RF: 0 levothyroxine [Synthroid] 200 mcg tablet 200 mcg PO DAILY RF: 0 cholecalciferol (vitamin D3) 10,000 unit capsule See Rx Instructions .ROUTE .COMPLEX RF: 0 Aspir-81 81 mg Tablet,Delayed Release (Dr/Ec) 81 mg PO DAILY RF: 0 ondansetron HCl [Zofran] 4 mg tablet 4 mg PO Q6H PRN (Reason: nausea and vomiting) Qty: 20 RF: 0 pantoprazole [Protonix] 40 mg tablet,delayed release (DR/EC) 40 mg PO DAILY 30 Days Qty: 30 RF: 2 amoxicillin 500 mg capsule 1,000 mg PO Q12H 14 Days Qty: 56 RF: 0 metronidazole [Flagyl] 500 mg tablet 500 mg PO Q8H 14 Days Qty: 42 RF: 0 Discharge Orders: Discharge Order (Routine); Ordered 02/19/20 Ordered By: Jovanna Bean Referrals: Lianet Handy DO [Primary Care Provider] - Activity Restrictions/Additional Instructions: As discussed Dr. Naylor' office is setting you up for a modified barium swallow. They will get you your appointment in [place] for the esophageal manometry as soon as possible. As discussed please follow up with your food truck caterer as soon as possible. Follow up with Dr. Naylor on Monday as scheduled. May return to ED anytime for any concerns you may have. Coding Level of Care Code ED Coin Machine Assembler for Chg Fwd Exam Detailed
[2020-02-19] MEDS: sodium chloride 0.9% 1,000 ML 999 ML IV (14:36)
[2020-02-19 14:39] VITALS: BP 99/60; PULSE 58; RESP 18; O2SAT 97
[2020-02-19 14:50] LABS: Alanine Aminotransferase < 5 U/L (0-33); Albumin Level 4.3 g/dL (3.5-5.2); Alkaline Phosphatase 63 IU/L (35-105); Anion Gap 16.8 (5-19); Aspartate Amino Transferase 18 U/L (0-32); Blood Urea Nitrogen 14 mg/dL (6-20); Calcium 9.1 mg/dL (8.5-10.5); Carbon Dioxide 25 mmol/L (22-29); Chloride 102 mmol/L (98-107); Globulin 2.9 g/dL (1.3-4.6); Glucose 98 mg/dL (65-115); Lipase 24 U/L (13-60); Osmolality Calculated 286 mOsm/kg (285-295); Potassium 3.8 mmol/L (3.5-5.1); Sodium 140 mmol/L (136-145); Total Bilirubin 0.3 mg/dL (0.15-1.2); Total Protein 7.2 g/dL (6.6-8.7)
[2020-02-19 15:08] LABS: HCG, Serum Qual Negative (Negative)
[2020-02-19 16:03] LABS: Add Urine Microscopic? YES; Bilirubin Urine Neg (NEGATIVE); Blood Urine Neg (Negative); Glucose Urine UA Norm (Normal); Ketones Urine Negative (Negative); Leukocyte Esterase Urine 2+ (Negative); Nitrate Urine Negative (Negative); Protein Urine Neg (Negative); Urine Appearance Clear (CLEAR); Urine Color Yellow (Yellow); Urobilinogen Urine Norm (Negative); pH Urine 5 (5-7)
[2020-02-19 16:07] LABS: Add Urine Culture? Yes; Bacteria Urine 1+; Squamous Epithelial Cell Urine 0-4 (0-5); WBC Urine 25-40 /hpf (0-5)
[2020-02-19 16:27] LABS: T3 Free 0.9 PG/ML (2.0-4.4)
[2020-02-19 16:52] VITALS: BP 111/69; PULSE 66; RESP 15; O2SAT 100
--- NOTE | 2020-02-20 11:30 | DCPLANNER ---
Patient is to follow up with [facility] on Monday, February 24, 2020 at 10:30.
--- NOTE | 2020-03-19 15:46 | DCPLANNER ---
Patient attended appointment scheduled for 02.24.20 with [facility].
== END 2020-02-19 16:52 | disposition home or self-care (01) ==
PROVIDERS: Emergency Provider Physician Assistant; Family Provider Family Medicine; PCP Family Medicine
DX: R13.12 Dysphagia, oropharyngeal phase (principal); E03.9 Hypothyroidism, unspecified; Z82.49 Family history of ischemic heart disease and other diseases of the circulatory system; Z83.3 Family history of diabetes mellitus; Z87.891 Personal history of nicotine dependence
CPT/HCPCS: 12345; 36415; 80053; 81001; 83690; 84439; 84443; 84481; 84703; 85025; 87086; 96361; 96374; 96375; 99283; A9270; J2405; J7030

== ENCOUNTER 2020-03-02 10:25 | Outpatient (CLI) | payer OTHER, SELFPAY ==
--- NOTE | 2020-03-02 10:29 | FL_ITS ---
WS: [id number] MODIFIED BARIUM SWALLOW HISTORY: Oral dysphagia FLUOROSCOPY TIME: 2.1 minutes. Modified barium swallow was performed by the speech pathologist. Fluoroscopy was provided with the pa tient in a lateral projection. Multiple food consistencies were provided. Very limited evaluation of swallowing function. Patient was unable to swallow significant amounts of fluid in order to distend the cervical esophagus. Patient was extremely hesitant about swallowing any of the food products provided in sufficient volume. Patient was unable to swallow the more solid leonardo d components. No aspiration or penetration was noted with the liquids provided. FL/FL barium swallow modifd [id number] IMPRESSION: 1. Extremely limited evaluation of swallowing function. Patient was very hesit ant and afraid to swallow significant volumes of fluid. No aspiration or penetr ation was evident. 2. Patient was unable able to swallow the solid foods provided. Please see speech therapist report also for recommendations.
== END 2020-03-02 10:26 | disposition home or self-care (01) ==
LOC: RAD 10:28
PROVIDERS: Family Provider Family Medicine; PCP Family Medicine; Visit Provider Surgery
DX: R13.12 Dysphagia, oropharyngeal phase (principal)
CPT/HCPCS: 74230; 92611

== ENCOUNTER 2020-04-03 12:24 | Emergency (ER) | payer OTHER, SELFPAY ==
[2020-04-03 12:45] VITALS: BP 126/84; PULSE 71; RESP 14; TEMP 36.9; O2SAT 100; BMI 37.2
[2020-04-03 12:53] VITALS: BP 121/86; PULSE 66; RESP 18; O2SAT 100
--- NOTE | 2020-04-03 12:59 | ECG_ITS ---
Measurements Intervals Distant Rate: 61 P: 53 MT: 168 QRS: 36 QRSD: 94 T: 8 QT: 422 QTc: 426 SINUS RHYTHM LOW QRS VOLTAGE IN PRECORDIAL LEADS [QRS DEFLECTION < 1.0 mV IN CHEST LEADS] NONSPECIFIC T-WAVE ABNORMALITY Compared to ECG 07/11/2019 20:26:04 Low QRS voltage now present T-wave abnormality now present Electronically Signed On 04-03-2020 18:55:48 CDT by Saman Coleman M.D. [email or web address]
--- NOTE | 2020-04-03 13:08 | ED_ITS ---
HPI - Dizziness General: Chief Complaint: Dizziness Stated Complaint: LIGHTHEADED, DIZZY Time Seen by Provider: 04/03/20 12:47 Source: patient and EMS Mode of arrival: EMS Limitations: no limitations History of Present Illness: HPI Narrative: 39-year-old female who has an extensive history of GI issues and swallowing issues. She states she has not eaten or drink anything over the last day has been having diaphoresis and weakness. She states this happens every 3 to 4 days and typically has to have IV fluids. Patient denies any chest pain or fever. She denies any headache. MD elicited complaint: lightheadedness Onset (ago): day(s) Timing: gradual onset Severity: moderate Exacerbating factors: nothing Relieving factors: nothing Associated symptoms: Reports nausea; Denies chest pain or chills Review of Systems Const: Denies: fever(s), chills, body aches or change in appetite Eyes: Denies: blurry vision or eye discomfort ENMT: Denies: throat pain or dental pain Card: Denies: chest pain Resp: Denies: dyspnea GI: Reports: nausea : Denies: dysuria Musc: Denies: neck pain or back pain Skin/Breast: Denies: rash Neuro: Reports: weakness in extremities Psych: Denies: depression Lj/Lymph: Denies: easy bruising All/Imm: Denies: urticaria PFSH ED PFSH: Medical History Allergic rhinitis Deviated septum FH: cholecystectomy Hypothyroid Palpitations Vomiting blood Surgical History History of thyroid surgery S/P ACL repair Family History Other CAD (coronary artery disease) Diabetes Denies family history of Anesthesia complication Bleeding disorder Social History Smoking and tobacco status: former smoker Quit status (tobacco): has quit using tobacco Year quit tobacco: 2017 Female Reproductive History: Date of last menstrual period: 03/30/20 Physical Exam Const: COMMON NORMALS: no acute distress, patient oriented x3 and healthy appearing HENMT: COMMON NORMALS: normocephalic and atraumatic HEAD & SCALP: normocephalic and atraumatic Eye: COMMON NORMALS: Equal, round and reactive pupils present and EOMs intact bilaterally PUPIL: Yes Equal, round and reactive pupils present Neck/C-Spine: COMMON NORMALS: full ROM and supple Chest: COMMONS NORMALS: normal inspection of the chest and normal palpation of entire chest wall Resp: COMMON NORMALS: normal respiratory effort, No retractions, No use of accessory muscles and clear to auscultation bilaterally AUSCULTATION: clear to auscultation bilaterally Cardio: COMMON NORMALS: regular rate, regular rhythm and No murmurs present (Cardio) RATE: regular rate RHYTHM: regular rhythm GI: COMMON NORMALS: Normal to inspection, nondistended, normoactive bowel sounds present, Soft to palpation, non-tender and no masses PALPATION: Yes Soft to palpation Extremity: COMMON NORMALS: normal to inspection and full ROM Neuro: COMMON NORMALS: patient oriented x3, moves all extremities and no focal motor deficits Psych: COMMON NORMALS: mental status grossly normal, Normal thought process present and cooperative THOUGHT PROCESS: Normal thought process present Skin: COMMON NORMALS: no rashes or lesions noted and no wounds GENERAL SKIN EXAM: no rashes or lesions noted Course Vital Signs: Vital signs: Vital Signs Temperature 98.4 F 04/03/20 12:45 Pulse Rate 66 04/03/20 15:03 Respiratory Rate 20 H 04/03/20 15:03 Blood Pressure 115/79 04/03/20 15:03 Pulse Oximetry 98 04/03/20 15:03 MDM - Dizziness MDM Narrative: Medical decision making narrative: Patient presents with weakness with dizziness likely due to dehydration and not eating. Patient is well-appearing here and lab work is normal. This is been chronic in nature and she follows up with GI in [place] on Monday. She states they are discussing putting a feeding tube in. She is stable for discharge and is to follow-up with primary care doctor in 3 to 5 days return to ER if worsening. Lab Data: Labs: Lab Results 04/03/20 04/03/20 04/03/20 Range/Units 13:29 13:29 13:29 WBC 7.0 (4.0-10.0) 10^3/ uL RBC 3.70 L (4.1-5.3) 10^6/u L Hgb 10.0 L (11.5-15.3) g/dL Hct 33.0 L (37.0-47.0) % MCV 89.2 (81-99) fL MCH 27.0 L (28.0-34.0) pg MCHC 30.3 (30.0-36.0) g/dL RDW 14.7 (12.1-15.1) % Plt Count 264 (130-400) 10^3/c mm MPV 10.4 (7.4-10.4) fL Neut % (Auto) 61.0 % Lymph % (Auto) 29.3 % Swisher % (Auto) 7.7 % Eos % (Auto) 1.3 % Baso % (Auto) 0.6 % Neut # (Auto) 4.3 (1.8-7.7) 10^3/u L Lymph # (Auto) 2.1 (0.8-4.8) 10^3/u L Swisher # (Auto) 0.5 (0.2-0.9) 10^3/u L Eos # (Auto) 0.1 (0.0-0.8) 10^3/u L Baso # (Auto) 0.0 (0.0-0.1) 10^3/u L Nucleated RBC % (a uto) 0 % Nucleated RBCs # 0.0 /100WBC Sodium 138 (136-145) mmol/L Potassium 3.7 (3.5-5.1) mmol/L Chloride 103 (98-107) mmol/L Carbon Dioxide 25 (22-29) mmol/L Anion Gap 13.7 (5-19) BUN 10 (6-20) mg/dL Creatinine 0.8 (0.5-0.9) mg/dL GFR Calculation 79.4 L (90-130) mL/min Glucose 84 (65-115) mg/dL Calculated Osmolal ity 281 L (285-295) mOsm/k g Calcium 8.7 (8.5-10.5) mg/dL Total Bilirubin 0.3 (0.15-1.2) mg/dL AST 17 (0-32) U/L ALT 12 (0-33) U/L Alkaline Phosphata se 58 (35-105) IU/L Troponin T Baselin e 6 (0-10) ng/mL Total Protein 6.8 (6.6-8.7) g/dL Albumin 4.2 (3.5-5.2) g/dL Globulin 2.6 (1.3-4.6) g/dL Lipase 22 (13-60) U/L EKG Data^: EKG 1: Attestation: I personally reviewed and interpreted this EKG as follows: EKG interpretation date: 04/03/20 EKG interpretation time: 13:21 Interpretation: nsr hr [address] or t wave abnormalities qrs 94 qtc 424 Discharge Plan Discharge Patient Disposition: Home, Self-Care Clinical Impression: Dizziness Condition: Stable Prescriptions: No Action levothyroxine [Synthroid] 25 mcg tablet 25 mcg PO DAILY RF: 0 levothyroxine [Synthroid] 200 mcg tablet 200 mcg PO DAILY RF: 0 cholecalciferol (vitamin D3) 10,000 unit capsule See Rx Instructions .ROUTE .COMPLEX RF: 0 aspirin [Aspir-81] 81 mg Tablet,Delayed Release (Dr/Ec) 81 mg PO DAILY RF: 0 pantoprazole [Protonix] 40 mg tablet,delayed release (DR/EC) 40 mg PO DAILY 30 Days Qty: 30 RF: 2 Discharge Orders: Discharge Order (Routine); Ordered 04/03/20 Ordered By: Jewell Rosas Referrals: Lianet Handy DO [Primary Care Provider] - 1-3 days Discharge Diet: Advance as tolerated Discharge Activity: Resume usual activity Patient Instructions: Dizziness (ED) Discharge Date/Time: 04/03/20 15:11 Coding Level of Care Code ED Plumber Pipe Fitting for Chg Fwd Exam Comprehensive
[2020-04-03] MEDS: sodium chloride 0.9% 1,000 ML 999 ML IV (13:31)
[2020-04-03 13:37] LABS: Basophils % 0.6 %; Eosinophils # 0.1 10^3/uL (0.0-0.8); Eosinophils % 1.3 %; Lymphocytes # 2.1 10^3/uL (0.8-4.8); Lymphocytes % 29.3 %; Mean Corpuscular HGB Conc 30.3 g/dL (30.0-36.0); Mean Corpuscular Volume 89.2 fL (81-99); Mean Platelet Volume 10.4 fL (7.4-10.4); Monocytes # 0.5 10^3/uL (0.2-0.9); Monocytes % 7.7 %; Neutrophils # 4.3 10^3/uL (1.8-7.7); Nucleated Red Blood Cells % 0 %; Platelet Count 264 10^3/cmm (130-400); Red Cell Distribution Width 14.7 % (12.1-15.1)
[2020-04-03 13:55] LABS: Alanine Aminotransferase 12 U/L (0-33); Albumin Level 4.2 g/dL (3.5-5.2); Alkaline Phosphatase 58 IU/L (35-105); Anion Gap 13.7 (5-19); Aspartate Amino Transferase 17 U/L (0-32); Blood Urea Nitrogen 10 mg/dL (6-20); Calcium 8.7 mg/dL (8.5-10.5); Carbon Dioxide 25 mmol/L (22-29); Chloride 103 mmol/L (98-107); Globulin 2.6 g/dL (1.3-4.6); Glomerular Filtration Rate 79.4 mL/min (90-130); Glucose 84 mg/dL (65-115); Lipase 22 U/L (13-60); Osmolality Calculated 281 mOsm/kg (285-295); Potassium 3.7 mmol/L (3.5-5.1); Sodium 138 mmol/L (136-145); Total Bilirubin 0.3 mg/dL (0.15-1.2); Total Protein 6.8 g/dL (6.6-8.7)
[2020-04-03 13:57] LABS: Troponin(5th) Baseline 6 ng/mL (0-10)
[2020-04-03 14:05] VITALS: BP 99/74; PULSE 61; RESP 12; O2SAT 99
[2020-04-03 15:03] VITALS: BP 115/79; PULSE 66; RESP 20; O2SAT 98
== END 2020-04-03 15:11 | disposition home or self-care (01) ==
PROVIDERS: Emergency Provider Emergency Medicine; PCP Family Medicine
DX: R42 Dizziness and giddiness (principal); Z79.82 Long term (current) use of aspirin; Z87.891 Personal history of nicotine dependence
CPT/HCPCS: 12345; 36415; 36600; 80053; 83690; 84484; 85025; 93005; 96360; 99282; 99283; J7030

== ENCOUNTER → 2020-04-09 14:20 | Outpatient (BNVA) | payer OTHER, SELFPAY | PROVIDERS: PCP Family Medicine; Visit Provider Nurse Practitioner Family | DX: Z11.59 Encounter for screening for other viral diseases (principal); Z20.828 Contact with and (suspected) exposure to other viral communicable diseases; Z71.89 Other specified counseling | CPT/HCPCS: 87635 ==

== ENCOUNTER → 2020-07-02 08:51 | Outpatient (BNVA) | payer OTHER, SELFPAY | PROVIDERS: PCP Family Medicine; Visit Provider Nurse Practitioner Family | DX: Z00.00 Encounter for general adult medical examination without abnormal findings (principal); Z98.890 Other specified postprocedural states; Z97.8 Presence of other specified devices; R13.12 Dysphagia, oropharyngeal phase; E89.0 Postprocedural hypothyroidism; Z79.899 Other long term (current) drug therapy; Z13.6 Encounter for screening for cardiovascular disorders | CPT/HCPCS: 80053; 80061; 81003; 83036; 84443; 85025 ==

== ENCOUNTER 2020-07-03 20:49 | Emergency (ER) | payer OTHER, SELFPAY ==
[2020-07-03 21:06] VITALS: PULSE 81; RESP 18; O2SAT 97; BMI 31.8
[2020-07-03 21:35] VITALS: BP 96/63
--- NOTE | 2020-07-03 21:51 | ED_ITS ---
HPI - Weakness General: Chief complaint: Weakness Stated complaint: feeding tube issues Time Seen by Provider: 07/03/20 21:51 Source: patient Mode of arrival: ambulatory Limitations: no limitations History of Present Illness: HPI Narrative: 40-year-old female comes in today with complaints of tenderness at the G-tube site. Patient had to have antibiotics and evaluation for an infection at the G-tube site 2 weeks ago at [facility] in [place]. Patient had an abscess at that time. Patient just finished clindamycin 3 days ago and has been doing well but then noticed some in creased discomfort in her abdominal area at the G-tube site this evening. Patient was concerned she was developing another abscess. Review of Systems General: Reports: 10 or more systems reviewed and unremarkable except in HPI and below GI: Reports: abdominal pain (at g-tube site) PFS ED PFSH: Medical History (Updated 07/03/20 @ 23:24 by BLAKE Clayton) Allergic rhinitis Deviated septum Esophageal tear FH: cholecystectomy Hypothyroid Palpitations Uses feeding tube Surgical History (Updated 06/05/20 @ 15:46 by BLAKE Hernández) History of esophagogastroduodenoscopy (EGD) History of thyroid surgery S/P ACL repair S/P thyroidectomy Family History Other CAD (coronary artery disease) Diabetes Denies family history of Anesthesia complication Bleeding disorder Social History Smoking and tobacco status: former smoker Quit status (tobacco): has quit using tobacco Year quit tobacco: 2017 Female Reproductive History: Date of last menstrual period: 03/30/20 Physical Exam Const: COMMON NORMALS: no acute distress and patient oriented x3 GENERAL APPEARANCE: cooperative HENMT: COMMON NORMALS: normocephalic, TM's normal bilaterally and Normal external nose present HEAD & SCALP: normal to inspection and normocephalic NOSE: Normal external nose present TYMPANIC MEMBRANE: TM's normal bilaterally MOUTH: Normal oral and palatal mucosa present THROAT: posterior oropharynx normal Eye: GENERAL EYE: appearance normal, both eyes and all related structures Neck/C-Spine: COMMON NORMALS: full ROM Lymph: LYMPHATIC: no lymphadenopathy noted Chest: COMMONS NORMALS: normal inspection of the chest Resp: COMMON NORMALS: normal respiratory effort EFFORT & INSPECTION: Yes able to speak in complete sentences Cardio: COMMON NORMALS: regular rate and regular rhythm RATE: regular rate RHYTHM: regular rhythm GI: COMMON NORMALS: non-tender : COMMON NORMALS: Yes no CVA tenderness BLADDER/KIDNEY EXAM: Yes no CVA tenderness Back/Pelvis: COMMON NORMALS: no CVA tenderness and thoracic and lumbar spine normal to inspection Extremity: COMMON NORMALS: normal to inspection Neuro: COMMON NORMALS: patient oriented x3 and moves all extremities Psych: COMMON NORMALS: mental status grossly normal and cooperative Skin: COMMON NORMALS: no rashes or lesions noted GENERAL SKIN EXAM: no rashes or lesions noted Course Vital Signs: Vital signs: Vital Signs Pulse Rate 84 07/03/20 22:35 Respiratory Rate 18 07/03/20 22:35 Blood Pressure 91/56 07/03/20 22:35 Pulse Oximetry 97 07/03/20 22:35 MDM - Weakness MDM Narrative: Medical decision making narrative: Patient came in tonight for concern of developing abscess around her G-tube site. Patient has had increased tenderness today. On exam patient has some mild redness at the G-tube site but no obvious swelling or drainage. Vital signs are normal. Differential diagnosis includes abscess, cellulitis, malingering. Laboratory values noted anemia which is normal for patient with a hemoglobin of 7.7. Metabolic panel was unremarkable. Urinalysis was contaminated but had significant white blood cells and red blood cells in it. CT scan of the abdomen and pelvis noted no abscess but may be some mild cellulitis at the G-tube insertion site. Remainder of the exam was normal. Reviewed exam with patient recommended restarting clindamycin 300 every 6 hours for 10 days to resolve the cellulitis. Patient reported understanding of care plan and need for follow-up. Lab Data: Labs: Lab Results 07/03/20 07/03/20 07/03/20 Range/Units 21:26 22:08 22:08 WBC 5.6 (4.0-10.0) 10^3/ uL RBC 2.71 L (4.1-5.3) 10^6/u L Hgb 7.7 L (11.5-15.3) g/dL Hct 25.5 L (37.0-47.0) % MCV 94.1 (81-99) fL MCH 28.4 (28.0-34.0) pg MCHC 30.2 (30.0-36.0) g/dL RDW 18.6 H (12.1-15.1) % Plt Count 158 (130-400) 10^3/c mm MPV 8.9 (7.4-10.4) fL Neut % (Auto) 45.3 % Lymph % (Auto) 38.7 % [place] % (Auto) 13.4 % Eos % (Auto) 2.0 % Baso % (Auto) 0.4 % Neut # (Auto) 2.55 (1.8-7.7) 10^3/u L Lymph # (Auto) 2.2 (0.8-4.8) 10^3/u L [place] # (Auto) 0.8 (0.2-0.9) 10^3/u L Eos # (Auto) 0.1 (0.0-0.8) 10^3/u L Baso # (Auto) 0.0 (0.0-0.1) 10^3/u L Nucleated RBC % (a uto) 0 % Nucleated RBCs # 0.0 /100WBC Sodium 139 (136-145) mmol/L Potassium 4.0 (3.5-5.1) mmol/L Chloride 105 (98-107) mmol/L Carbon Dioxide 27 (22-29) mmol/L Anion Gap 11.0 (5-19) BUN 15 (6-20) mg/dL Creatinine 0.8 (0.5-0.9) mg/dL GFR Calculation 79.0 L (90-130) mL/min Glucose 103 (65-115) mg/dL Calculated Osmolal ity 285 (285-295) mOsm/k g Calcium 8.4 L (8.5-10.5) mg/dL Total Bilirubin 0.5 (0.15-1.2) mg/dL AST 14 (0-32) U/L ALT 16 (0-33) U/L Alkaline Phosphata se 93 (35-105) IU/L Total Protein 7.3 (6.6-8.7) g/dL Albumin 3.7 (3.5-5.2) g/dL Globulin 3.6 (1.3-4.6) g/dL Urine Color Yellow (Yellow) Urine Appearance Clear (CLEAR) Urine pH 6.5 (5-7) Ur Specific Gravit y 1.020 (1.005-1.030) Urine Protein Neg (Negative) Urine Glucose (UA) Norm (Normal) Urine Ketones 1+ H (Negative) Urine Blood Neg (Negative) Urine Nitrate Negative (Negative) Urine Bilirubin Neg (NEGATIVE) Urine Urobilinogen 1 H (Negative) mg/dL Ur Leukocyte Cynthia ase 2+ H (Negative) Urine RBC 0-4 H (0-2) /hpf Urine WBC 25-40 H (0-5) /hpf Ur Squamous Epith Cells 15-25 H (0-5) Amorphous Sediment Not Reportable Urine Bacteria 1+ H (NONE) Urine Mucus 2+ Discharge Plan Discharge Patient Disposition: Home Clinical Impression: Cellulitis of abdominal wall Condition: Stable Prescriptions: New Clindamycin Pediatric 75 mg/5 mL recon soln 300 mg PO Q6H 10 Days Qty: 800 RF: 0 No Action ondansetron HCl [Zofran] 4 mg tablet 4 mg PO Q8H RF: 0 Osmolite 1.5 Kingsley 0.06 gram-1.5 kcal/mL liquid PO RF: 0 cholecalciferol (vitamin D3) 10,000 unit capsule See Rx Instructions .ROUTE .COMPLEX RF: 0 famotidine [Pepcid] 40 mg tablet 40 mg PO BID Qty: 60 RF: 0 levothyroxine [Synthroid] 25 mcg tablet 25 mcg PO DAILY Qty: 30 RF: 0 levothyroxine [Synthroid] 200 mcg tablet 200 mcg PO DAILY Qty: 30 RF: 0 aspirin [Aspir-81] 81 mg Tablet,Delayed Release (Dr/Ec) 81 mg PO DAILY RF: 0 Discharge Orders: Discharge Order (Routine); Ordered 07/03/20 Ordered By: Ty Best Referrals: Lianet Handy DO [Primary Care Provider] - Discharge Diet: Usual diet Discharge Activity: Increase activity as tolerated Patient Instructions: Cellulitis (ED) Activity Restrictions/Additional Instructions: Continue with routine care. Use antibiotic as directed for the next 10 days. Follow-up with primary care in 1 week. Return to the emergency department for worsening signs and symptoms Coding Level of Care Code ED Fur Cutting Machine Operator for Brian Fwd Exam Comprehensive
--- NOTE | 2020-07-03 22:00 | CTR_ITS ---
PROCEDURE INFORMATION: Exam: CT Abdomen And Pelvis With Contrast Exam date and time: 07/03/2020 10:29 PM Age: 40 years old Clinical indication: Abdominal pain; Localized; Left upper quadrant (luq); Prior surgery; Surgery date: 1-6 months; Surgery type: Jg tube since May; Patient HX: Pain and redness around site, previous abscess; Additional info: Abd pain, abscess TECHNIQUE: Imaging protocol: Computed tomography of the abdomen and pelvis with intravenous contrast. Radiation optimization: All CT scans at this facility use at least one of these dose optimization techniques: automated exposure control; mA and/or kV adjustment per patient size (includes targeted exams where dose is matched to clinical indication); or iterative reconstruction. Contrast material: OMNI 300; Contrast volume: 95 ml; Contrast route: INTRAVENOUS (IV); COMPARISON: CT abdomen pelvis w con* [id number] 02/09/2020 6:01 AM RADIATION DOSE METRICS: Total DLP (mGy-cm): 1234.58 FINDINGS: Tubes, catheters and devices: A percutaneous gastrojejunostomy tube is in place with its tip terminating in the 4th portion of duodenum. Mild subcutaneous fat stranding is seen around the entry site. No abscess is visualized. Liver: Normal. No mass. Gallbladder and bile ducts: The gallbladder has been removed. No biliary ductal dilatation. Pancreas: Normal. No ductal dilation. Spleen: Normal. No splenomegaly. Adrenals: Normal. No mass. Kidneys and ureters: Normal. No hydronephrosis. Stomach and bowel: Unremarkable. No obstruction. No mucosal thickening. Appendix: The appendix is normal. Intraperitoneal space: Unremarkable. No free air. No significant fluid collection. Vasculature: Unremarkable. No abdominal aortic aneurysm. Lymph nodes: Unremarkable. No enlarged lymph nodes. Bladder: Unremarkable as visualized. Reproductive: The uterus and ovaries appear normal. Bones/joints: Unremarkable. No acute fracture. CT/CT abdomen pelvis w con* [id number] IMPRESSION: Possible mild cellulitis at the entry site of the gastrojejunostomy tube. No abscess is visualized. Radiation Dose CTDIVOL = (mGy): DLP = 1234.58 (mGy-cm)
[2020-07-03] MEDS: sodium chloride 0.9% 1,000 ML 999 ML IV (22:20)
[2020-07-03 22:21] LABS: Basophils % 0.4 %; Eosinophils # 0.1 10^3/uL (0.0-0.8); Hematocrit 25.5 % (37.0-47.0); Hemoglobin 7.7 g/dL (11.5-15.3); Lymphocytes # 2.2 10^3/uL (0.8-4.8); Lymphocytes % 38.7 %; Mean Corpuscular HGB Conc 30.2 g/dL (30.0-36.0); Mean Corpuscular Hemoglobin 28.4 pg (28.0-34.0); Mean Corpuscular Volume 94.1 fL (81-99); Mean Platelet Volume 8.9 fL (7.4-10.4); Monocytes # 0.8 10^3/uL (0.2-0.9); Monocytes % 13.4 %; Neutrophils # 2.55 10^3/uL (1.8-7.7); Neutrophils % 45.3 %; Nucleated Red Blood Cells % 0 %; Platelet Count 158 10^3/cmm (130-400); Red Blood Count 2.71 10^6/uL (4.1-5.3); Red Cell Distribution Width 18.6 % (12.1-15.1); White Blood Count 5.6 10^3/uL (4.0-10.0)
[2020-07-03 22:35] VITALS: BP 91/56; PULSE 84; RESP 18; O2SAT 97
[2020-07-03 22:38] LABS: Alanine Aminotransferase 16 U/L (0-33); Albumin Level 3.7 g/dL (3.5-5.2); Alkaline Phosphatase 93 IU/L (35-105); Aspartate Amino Transferase 14 U/L (0-32); Blood Urea Nitrogen 15 mg/dL (6-20); Calcium 8.4 mg/dL (8.5-10.5); Carbon Dioxide 27 mmol/L (22-29); Chloride 105 mmol/L (98-107); Globulin 3.6 g/dL (1.3-4.6); Glucose 103 mg/dL (65-115); Osmolality Calculated 285 mOsm/kg (285-295); Sodium 139 mmol/L (136-145); Total Bilirubin 0.5 mg/dL (0.15-1.2); Total Protein 7.3 g/dL (6.6-8.7)
[2020-07-03] MEDS: iohexol 300 mg/mL 100 mL Btl IV (22:45)
[2020-07-03 23:15] LABS: Add Urine Microscopic? YES; Bilirubin Urine Neg (NEGATIVE); Blood Urine Neg (Negative); Glucose Urine UA Norm (Normal); Ketones Urine 1+ (Negative); Leukocyte Esterase Urine 2+ (Negative); Nitrate Urine Negative (Negative); Protein Urine Neg (Negative); Urine Appearance Clear (CLEAR); Urine Color Yellow (Yellow); Urobilinogen Urine 1 mg/dL (Negative); pH Urine 6.5 (5-7)
[2020-07-03 23:29] LABS: Add Urine Culture? No; Bacteria Urine 1+; Mucus Urine 2+; RBC Urine 0-4 /hpf (0-2); Squamous Epithelial Cell Urine 15-25 (0-5); WBC Urine 25-40 /hpf (0-5)
[2020-07-03] MEDS: clindamycin 150 mg Capsule 300 MG PO (23:40)
== END 2020-07-03 23:49 | disposition home or self-care (01) ==
PROVIDERS: Emergency Provider Nurse Practitioner Family; PCP Family Medicine
DX: L03.311 Cellulitis of abdominal wall (principal); Z79.82 Long term (current) use of aspirin; Z87.891 Personal history of nicotine dependence
CPT/HCPCS: 12345; 74177; 80053; 81001; 85025; 99282; 99283; J7030; Q9967

== ENCOUNTER 2020-08-16 19:02 | Emergency (ER) | payer OTHER, SELFPAY ==
[2020-08-16 19:07] VITALS: BP 117/68; PULSE 73; RESP 16; TEMP 36.2; O2SAT 100; BMI 29.2
[2020-08-16 19:41] VITALS: BP 109/53; PULSE 80; RESP 18; O2SAT 98
--- NOTE | 2020-08-16 19:58 | CTR_ITS ---
PROCEDURE INFORMATION: Exam: CT Abdomen And Pelvis With Contrast Exam date and time: 08/16/2020 8:07 PM Age: 40 years old Clinical indication: Abdominal pain; Generalized; Prior surgery; Surgery date: 6+ months; Patient HX: C/O abd pain, fever and clogged j tube; Additional info: Abdominal pain, fever TECHNIQUE: Imaging protocol: Computed tomography of the abdomen and pelvis with intravenous contrast. Radiation optimization: All CT scans at this facility use at least one of these dose optimization techniques: automated exposure control; mA and/or kV adjustment per patient size (includes targeted exams where dose is matched to clinical indication); or iterative reconstruction. Contrast material: OMNI 300; Contrast volume: 95 ml; Contrast route: INTRAVENOUS (IV); COMPARISON: CT abdomen pelvis w con* [id number] 07/03/2020 10:40 PM RADIATION DOSE METRICS: Total DLP (mGy-cm): 911.8 FINDINGS: Liver: Normal. No mass. Gallbladder and bile ducts: Cholecystectomy. Pancreas: Normal. No ductal dilation. Spleen: Normal. No splenomegaly. Adrenals: Normal. No mass. Kidneys and ureters: Normal. No hydronephrosis. Stomach and bowel: Percutaneous enteric tube seen with balloon inflated in the stomach tip extending into the duodenum. Appendix: No evidence of appendicitis. Intraperitoneal space: Unremarkable. No free air. No significant fluid collection. Vasculature: Unremarkable. No abdominal aortic aneurysm. Lymph nodes: Unremarkable. No enlarged lymph nodes. Urinary bladder: Unremarkable as visualized. Reproductive: Unremarkable as visualized. Bones/joints: Unremarkable. No acute fracture. Soft tissues: Unremarkable. CT/CT abdomen pelvis w con* [id number] IMPRESSION: 1. Negative for acute inflammatory process in abdomen or pelvis 2. Percutaneous enteric tube seen with balloon inflated in the stomach tip extending into the duodenum. 3. Cholecystectomy. Radiation Dose CTDIVOL = (mGy): DLP = 911.8 (mGy-cm)
--- NOTE | 2020-08-16 20:13 | ED_ITS ---
HPI - General Adult General: Chief complaint: General Medical Stated complaint: jg tube clogged Time Seen by Provider: 08/16/20 19:40 History of Present Illness: HPI narrative: This patient is a 40-year-old female who comes in today stating that her J-tube is clogged up. She had the tube placed sometime around May and has had an abscess around the tube that was treated with antibiotics and hospitalization. That was in June. This week she started having trouble with clogging up. She was seen in the ER at [place] where her surgeon practices and he was able to get it started again. Since that time she has not been able to get back to full feeds or fluids. Tonight she was not able to get anything through the tube. She said that she had to have the tube placed because she has failed swallowing studies. The cause of that is not clear. Sounds like she also may have some problem with GI motility. On review of her old charts it looks like she may have had a small stroke that may have contributed to this. She has had a significant weight loss over the past 4 to 5 months, as much is about 80 pounds. She feels like she is getting dehydrated and has only had about 2 ounces of water today. She also has discomfort in her back and does not feel right. She said she feels the same way as she did when she had the abscess. Onset (ago): week(s) (Off and on) Location: back and abdomen Radiation: back Severity: moderate Quality: burning and aching Pain Consistency: constant Associated symptoms: Reports malaise and nausea; Deny chest pain, dyspnea, headache(s) or rash Review of Systems General: Reports: 10 or more systems reviewed and unremarkable except in HPI and below Const: Reports: change in weight and malaise Eyes: Denies: change in vision ENMT: Reports: other (Dysphasia) Card: Denies: chest pain or swelling of feet/ankles Resp: Denies: dyspnea, productive cough or non-productive cough GI: Reports: nausea and early satiety : Denies: flank pain or difficulty voiding Musc: Denies: neck pain or back pain Skin/Breast: Denies: rash Neuro: Denies: headache(s), numbness in extremities or weakness in extremities Lj/Lymph: Denies: easy bruising or easy bleeding PFSH ED PFSH: Medical History Allergic rhinitis Anxiety and depression Deviated septum Esophageal tear FH: cholecystectomy Hypothyroid Normocytic normochromic anemia Palpitations Uses feeding tube Weight loss of more than 10% body weight Surgical History History of esophagogastroduodenoscopy (EGD) History of thyroid surgery S/P ACL repair S/P thyroidectomy Family History Other CAD (coronary artery disease) Diabetes Denies family history of Anesthesia complication Bleeding disorder Social History Smoking and tobacco status: former smoker Quit status (tobacco): has quit using tobacco Year quit tobacco: 2016 Female Reproductive History: Date of last menstrual period: 07/29/20 Physical Exam Const: COMMON NORMALS: no acute distress, patient oriented x3, no limitations and alert GENERAL APPEARANCE: cooperative and comfortable HENMT: HEAD & SCALP: normal to inspection FACE & SINUS: normal facial exam Eye: GENERAL EYE: appearance normal, both eyes and all related structures Neck/C-Spine: COMMON NORMALS: supple, no meningeal signs and no JVD Chest: COMMONS NORMALS: normal inspection of the chest Resp: COMMON NORMALS: normal respiratory effort, No use of accessory muscles and clear to auscultation bilaterally AUSCULTATION: clear to auscultation bilaterally Cardio: COMMON NORMALS: no JVD, regular rate, regular rhythm and No murmurs present (Cardio) RATE: regular rate RHYTHM: regular rhythm GI: COMMON NORMALS: Normal to inspection, nondistended, normoactive bowel sounds present and Soft to palpation INSPECTION: Yes normal to inspection (G- tube in place with no significant redness or drainage) AUSCULTATION: Yes normoactive bowel sounds PALPATION: Yes Soft to palpation and Yes Tenderness to palpation present (GI) (Mildly tender diffusely) Back/Pelvis: COMMON NORMALS: thoracic and lumbar spine normal to inspection Extremity: COMMON NORMALS: normal to inspection Neuro: COMMON NORMALS: patient oriented x3, moves all extremities, no focal motor deficits and no sensory deficits noted SENSORIUM/ORIENTATION: Yes alert MENINGEAL SIGNS: Yes no meningeal signs Psych: COMMON NORMALS: mental status grossly normal, cooperative and normal affect Skin: COMMON NORMALS: no rashes or lesions noted and turgor normal GENERAL SKIN EXAM: no rashes or lesions noted and turgor normal Course ED course: This patient is here for a clogged G-tube. She says that she only takes nutrition through the G-tube and that she has not been able to put anything through it for the last couple of days. Her labs are quite normal. I reviewed her testing here and even her swallow study did not show definite dysphagia. Does not entirely clear what is going on with her. I think she is fine to follow-up with her surgeon in [place] in the next few days to have the G- tube replaced. She was given some IV fluids here and based on her labs she is not in any state of dehydration or malnutrition. She is agreeable with this plan. Vital Signs: Vital signs: Vital Signs Temperature 98.1 F 08/16/20 21:51 Pulse Rate 78 08/16/20 21:51 Respiratory Rate 18 08/16/20 21:51 Blood Pressure 113/72 08/16/20 21:51 Pulse Oximetry 97 08/16/20 21:51 [facility] - General Adult Lab Data: Labs: Lab Results 08/16/20 08/16/20 08/16/20 Range/Units 20:20 20:20 20:20 WBC 7.0 (4.0-10.0) 10^3/ uL RBC 4.19 (4.1-5.3) 10^6/u L Hgb 11.3 L (11.5-15.3) g/dL Hct 36.4 L (37.0-47.0) % MCV 86.9 (81-99) fL MCH 27.0 L (28.0-34.0) pg MCHC 31.0 (30.0-36.0) g/dL RDW 13.2 (12.1-15.1) % Plt Count 312 (130-400) 10^3/c mm MPV 9.2 (7.4-10.4) fL Neut % (Auto) 48.3 % Lymph % (Auto) 40.4 % [place] % (Auto) 8.7 % Eos % (Auto) 1.9 % Baso % (Auto) 0.6 % Neut # (Auto) 3.38 (1.8-7.7) 10^3/u L Lymph # (Auto) 2.8 (0.8-4.8) 10^3/u L [place] # (Auto) 0.6 (0.2-0.9) 10^3/u L Eos # (Auto) 0.1 (0.0-0.8) 10^3/u L Baso # (Auto) 0.0 (0.0-0.1) 10^3/u L Nucleated RBC % (a uto) 0 % Nucleated RBCs # 0.0 /100WBC ESR 38 H (0-15) mm/hr Sodium 144 (136-145) mmol/L Potassium 3.7 (3.5-5.1) mmol/L Chloride 106 (98-107) mmol/L Carbon Dioxide 26 (22-29) mmol/L Anion Gap 15.7 (5-19) BUN 11 (6-20) mg/dL Creatinine 0.7 (0.5-0.9) mg/dL GFR Calculation 92.2 (90-130) mL/min Glucose 99 (65-115) mg/dL Calculated Osmolal ity 297 H (285-295) mOsm/k g Lactic Acid (0.5-2.2) mmol/L Calcium 9.6 (8.5-10.5) mg/dL Total Bilirubin 0.3 (0.15-1.2) mg/dL AST 19 (0-32) U/L ALT 26 (0-33) U/L Alkaline Phosphata se 80 (35-105) IU/L Total Protein 7.7 (6.6-8.7) g/dL Albumin 4.3 (3.5-5.2) g/dL Globulin 3.4 (1.3-4.6) g/dL Lipase 32 (13-60) U/L Procalcitonin 0.04 (0-0.5) ng/mL Urine Color (Yellow) Urine Appearance (CLEAR) Urine pH (5-7) Ur Specific Gravit y (1.005-1.030) Urine Protein (Negative) Urine Glucose (UA) (Normal) Urine Ketones (Negative) Urine Blood (Negative) Urine Nitrate (Negative) Urine Bilirubin (Negative) Urine Urobilinogen (Negative) mg/dL Ur Leukocyte Cynthia ase (Negative) Urine RBC (0-2) /hpf Urine WBC (0-5) /hpf Ur Squamous Epith Cells (0-5) /hpf Amorphous Sediment /hpf Urine Bacteria (NONE) /hpf Urine Mucus /hpf 08/16/20 08/16/20 Range/Units 20:20 21:10 WBC (4.0-10.0) 10^3/ uL RBC (4.1-5.3) 10^6/u L Hgb (11.5-15.3) g/dL Hct (37.0-47.0) % MCV (81-99) fL MCH (28.0-34.0) pg MCHC (30.0-36.0) g/dL RDW (12.1-15.1) % Plt Count (130-400) 10^3/c mm MPV (7.4-10.4) fL Neut % (Auto) % Lymph % (Auto) % Stephens % (Auto) % Eos % (Auto) % Baso % (Auto) % Neut # (Auto) (1.8-7.7) 10^3/u L Lymph # (Auto) (0.8-4.8) 10^3/u L Stephens # (Auto) (0.2-0.9) 10^3/u L Eos # (Auto) (0.0-0.8) 10^3/u L Baso # (Auto) (0.0-0.1) 10^3/u L Nucleated RBC % (a uto) % Nucleated RBCs # /100WBC ESR (0-15) mm/hr Sodium (136-145) mmol/L Potassium (3.5-5.1) mmol/L Chloride (98-107) mmol/L Carbon Dioxide (22-29) mmol/L Anion Gap (5-19) BUN (6-20) mg/dL Creatinine (0.5-0.9) mg/dL GFR Calculation (90-130) mL/min Glucose (65-115) mg/dL Calculated Osmolal ity (285-295) mOsm/k g Lactic Acid 0.9 (0.5-2.2) mmol/L Calcium (8.5-10.5) mg/dL Total Bilirubin (0.15-1.2) mg/dL AST (0-32) U/L ALT (0-33) U/L Alkaline Phosphata se (35-105) IU/L Total Protein (6.6-8.7) g/dL Albumin (3.5-5.2) g/dL Globulin (1.3-4.6) g/dL Lipase (13-60) U/L Procalcitonin (0-0.5) ng/mL Urine Color Yellow (Yellow) Urine Appearance Clear (CLEAR) Urine pH 5 (5-7) Ur Specific Gravit y 1.010 (1.005-1.030) Urine Protein Trace (Negative) Urine Glucose (UA) Norm (Normal) Urine Ketones Negative (Negative) Urine Blood Neg (Negative) Urine Nitrate Negative (Negative) Urine Bilirubin Neg (Negative) Urine Urobilinogen Norm (Negative) mg/dL Ur Leukocyte Cynthia ase Trace H (Negative) Urine RBC 0-4 H (0-2) /hpf Urine WBC 0-4 H (0-5) /hpf Ur Squamous Epith Cells 25-40 H (0-5) /hpf Amorphous Sediment Trace /hpf Urine Bacteria 1+ H (NONE) /hpf Urine Mucus 4+ /hpf Discharge Plan Discharge Patient Disposition: Home Clinical Impression: Malfunctioning jejunostomy tube Condition: Stable Prescriptions: No Action ondansetron HCl [Zofran] 4 mg tablet 4 mg PO Q8H RF: 0 Osmolite 1.5 Kingsley 0.06 gram-1.5 kcal/mL liquid PO RF: 0 cholecalciferol (vitamin D3) 10,000 unit capsule See Rx Instructions .ROUTE .COMPLEX RF: 0 famotidine [Pepcid] 40 mg tablet 40 mg PO BID Qty: 60 RF: 0 levothyroxine [Synthroid] 200 mcg tablet 200 mcg PO DAILY Qty: 30 RF: 0 sertraline [Zoloft] 50 mg tablet 50 mg PO DAILY Qty: 30 RF: 3 Discharge Orders: Discharge Order (Routine); Ordered 08/16/20 Ordered By: Deborah Sullivan Referrals: Jonathon Hernández MD [Primary Care Provider] - Discharge Diet: Usual diet Discharge Activity: Resume usual activity Patient Instructions: How to Use and Care for Your PEG Tube (ED) Activity Restrictions/Additional Instructions: Follow-up with your surgeon in [place] tomorrow Discharge Date/Time: 08/16/20 21:45 Coding Level of Care Code ED Wreath Machine Tender for Chg Fwd Exam Comprehensive
[2020-08-16 20:14] VITALS: BP 133/79; PULSE 88; RESP 18; O2SAT 96
[2020-08-16] MEDS: sodium chloride 0.9% 1,000 ML 999 ML IV (20:15)
[2020-08-16 20:28] LABS: Basophils % 0.6 %; Eosinophils # 0.1 10^3/uL (0.0-0.8); Eosinophils % 1.9 %; Hematocrit 36.4 % (37.0-47.0); Hemoglobin 11.3 g/dL (11.5-15.3); Lymphocytes # 2.8 10^3/uL (0.8-4.8); Lymphocytes % 40.4 %; Mean Corpuscular Volume 86.9 fL (81-99); Mean Platelet Volume 9.2 fL (7.4-10.4); Monocytes # 0.6 10^3/uL (0.2-0.9); Monocytes % 8.7 %; Neutrophils # 3.38 10^3/uL (1.8-7.7); Neutrophils % 48.3 %; Nucleated Red Blood Cells % 0 %; Platelet Count 312 10^3/cmm (130-400); Red Blood Count 4.19 10^6/uL (4.1-5.3); Red Cell Distribution Width 13.2 % (12.1-15.1)
[2020-08-16] MEDS: iohexol 300 mg/mL 100 mL Btl IV (20:33)
[2020-08-16 20:50] LABS: Lactic Sepsis W/Reflex 0.9 mmol/L (0.5-2.2)
[2020-08-16 20:51] LABS: Alanine Aminotransferase 26 U/L (0-33); Albumin Level 4.3 g/dL (3.5-5.2); Alkaline Phosphatase 80 IU/L (35-105); Anion Gap 15.7 (5-19); Aspartate Amino Transferase 19 U/L (0-32); Blood Urea Nitrogen 11 mg/dL (6-20); Calcium 9.6 mg/dL (8.5-10.5); Carbon Dioxide 26 mmol/L (22-29); Chloride 106 mmol/L (98-107); Globulin 3.4 g/dL (1.3-4.6); Glomerular Filtration Rate 92.2 mL/min (90-130); Glucose 99 mg/dL (65-115); Lipase 32 U/L (13-60); Osmolality Calculated 297 mOsm/kg (285-295); Potassium 3.7 mmol/L (3.5-5.1); Sodium 144 mmol/L (136-145); Total Bilirubin 0.3 mg/dL (0.15-1.2); Total Protein 7.7 g/dL (6.6-8.7)
[2020-08-16 21:00] VITALS: BP 119/53; PULSE 88; RESP 16; O2SAT 97
--- NOTE | 2020-08-16 21:29 | PC.NURSE ---
Attempt to irrigate JG tube unsuccessful-
[2020-08-16 21:30] LABS: Erythrocyte Sedimentation Rate 38 mm/hr (0-15)
[2020-08-16 21:30] LABS: Add Urine Microscopic? YES; Bilirubin Urine Neg (Negative); Blood Urine Neg (Negative); Glucose Urine UA Norm (Normal); Ketones Urine Negative (Negative); Leukocyte Esterase Urine Trace (Negative); Nitrate Urine Negative (Negative); Protein Urine Trace (Negative); Urine Appearance Clear (CLEAR); Urine Color Yellow (Yellow); Urobilinogen Urine Norm (Negative); pH Urine 5 (5-7)
[2020-08-16 21:34] LABS: Procalcitonin 0.04 ng/mL (0-0.5)
[2020-08-16 21:51] VITALS: BP 113/72; PULSE 78; RESP 18; TEMP 36.7; O2SAT 97
[2020-08-16 21:53] LABS: Add Urine Culture? No; Amorphous Sediment Urine TRACE /hpf; Bacteria Urine 1+ /hpf; Mucus Urine 4+ /hpf; RBC Urine 0-4 /hpf (0-2); Squamous Epithelial Cell Urine 25-40 /hpf (0-5); WBC Urine 0-4 /hpf (0-5)
== END 2020-08-16 21:45 | disposition home or self-care (01) ==
PROVIDERS: Emergency Provider Emergency Medicine; PCP Family Medicine Adult Medicine
DX: K94.13 Enterostomy malfunction (principal); Z87.891 Personal history of nicotine dependence
CPT/HCPCS: 12345; 36415; 74177; 80053; 81001; 83605; 83690; 84145; 85025; 85651; 96360; 99282; 99283; J7030; Q9967

== ENCOUNTER → 2024-03-18 09:59 | Outpatient (BNVA) | payer MEDICAID, SELFPAY | PROVIDERS: PCP Family Medicine Adult Medicine; Visit Provider Podiatrist Foot & Ankle Surgery | DX: M72.2 Plantar fascial fibromatosis | CPT/HCPCS: 73630; 99203 ==